=== PATIENT | male | born 1940 | race Caucasian/White ===

== ENCOUNTER 2016-05-16 16:55 | Emergency (ER) | payer MEDICARE ==
[~2016-05-16] VITALS: Ht 182.9 cm; Wt 98.0 kg
[2016-05-16] MEDS ORDERED: ALBUTEROL 0.083% NEB SOLUTION 2.5 MG/3 ML VIAL INH ONE (17:35)
[2016-05-16] MEDS ORDERED: ALBUTEROL HFA (VENTOLIN HFA) COMMON CANNISTER IH PRN (18:30)
[2016-05-16] MEDS ORDERED: ED- PROMETHAZINE/CODEINE SYRUP 6.25MG-10MG/5 ML (PHENERGAN) 118 ML BTL PO ONE (18:30)
--- NOTE | 2016-05-16 19:00 | NUR ---
HOUSE SUPV CONT TO OBTAIN INHALER FOR HOME USE FROM PHARMACY. CL
[2016-05-16] MEDS ORDERED: ED- ALBUTEROL HFA (VENTOLIN HFA) 8 GM INHALER IH ONE (19:19)
[2016-05-16 19:21] VITALS: BP 96/51
== END 2016-05-16 19:22 | disposition home or self-care (01) ==
LOC: ED 16:56
DX: J11.1 Influenza due to unidentified influenza virus with other respiratory manifestations (principal); J98.01 Acute bronchospasm
CPT/HCPCS: 71020; 94640; 94664; 99282; A9270; J7613; 99283

== ENCOUNTER 2016-06-04 10:30 | Outpatient (RCR) | payer MEDICARE | END 2016-06-18 16:16 | disposition home or self-care (01) | LOC: PT 10:30 | PROVIDERS: ATTEND Family Medicine | DX: M54.5 Low back pain (principal); M54.17 Radiculopathy, lumbosacral region | CPT/HCPCS: 97012; 97032; 97035; 97110; 97140; 97161; G8978; G8979; G8980 ==